=== PATIENT | female | born 1970 | race Caucasian/White ===

== ENCOUNTER → 2016-10-13 | Outpatient (CLI) | payer OTHER ==
--- NOTE | 2016-10-13 15:35 | MA ---
Bilateral Screening Digital Mammograms With iCAD Clinical Indications: Routine screening mammograms. Positive family history. Technique: Standard digital cephalocaudal and mediolateral oblique projections were obtained. This examination was processed by the iCAD computer-aided detection system. Comparison: 2015, 2014, 2012. Breast Density: Type C. Findings: Computer-aided detection was reviewed. In the right breast MLO inferior aspect there is nod ular asymmetry with possible architectural distortion. In the left breast MLO upper aspect there is n odular asymmetry with possible architectural distortion. No suspicious microcalcifications in either breast. Impression: 1. ACR BI-RADS 0: Needs further imaging.. 2. Nodular asymmetries with possible architectural distortion both breasts for which additional imagi ng is recommended. Recommendation: Additional spot compression mammographic views of both breasts. [facility] will send a result letter to the patient.
== END ==
LOC: BRMIMAGING 12:40
DX: Z12.31 Encounter for screening mammogram for malignant neoplasm of breast (principal); Z80.3 Family history of malignant neoplasm of breast
CPT/HCPCS: G0202